=== PATIENT | male | born 1970 | race African-American/Black ===

== ENCOUNTER 2023-10-06 21:21 | Emergency (ER) | payer OTHER ==
[2023-10-06 21:36] VITALS: PULSE 88; TEMP 97.9; BMI 28.0
[2023-10-06] MEDS ORDERED: HALOPERIDOL LACTATE 5 MG/ML ONE (22:19)
[2023-10-06 22:20] LABS: VENOUS BASE EXCESS -2.6 mmol/L (-2-2); VENOUS O2 SATURATION 88.5 % (70-80); VENOUS PCO2 36.1 mmHg (38-52); VENOUS PH 7.395 (7.310-7.410)
[2023-10-06 22:24] LABS: BASO % 0.7 % (0-2.0); EOS % 0.3 % (0-4.5); HEMATOCRIT 41.1 % (35.4-49); LYMPH % 24.7 % (8-40); MCH 26.3 pg (25.7-33.7); MCHC 34.1 g/dl (32.0-35.9); MEAN CELL VOLUME 76.9 fl (80-96); MEAN PLT VOLUME 8.7 fl (7.5-11.1); MONO % 8.9 % (3.8-10.2); NEUT % 65.4 % (42.8-82.8); PLATELET COUNT 235 10^3/uL (134-434); RBC 5.35 M/mm3 (4.00-5.60); RDW 14.9 % (11.9-15.9); WHITE BLOOD COUNT 6.4 K/mm3 (4.0-10.0)
[2023-10-06] MEDS: HALOPERIDOL LACTATE 5 MG/ML IM ONE (22:25)
[2023-10-06 22:37] LABS: POTASSIUM 3.6 mmol/L (3.5-5.1)
[2023-10-06 22:39] LABS: ALBUMIN 4.2 g/dl (3.4-5.0); CALCIUM 9.7 mg/dL (8.5-10.1)
[2023-10-06 22:40] LABS: BLOOD UREA NITROGEN 16.3 mg/dL (7-18); MAGNESIUM 2.3 mg/dL (1.8-2.4)
[2023-10-06 22:42] LABS: CREATININE 1.1 mg/dL (0.55-1.3); PHOSPHOROUS 3.9 mg/dL (2.5-4.9)
[2023-10-06 22:44] LABS: BILIRUBIN,TOTAL 0.9 mg/dL (0.2-1); TOT PROT 7.8 g/dl (6.4-8.2)
[2023-10-06] MEDS: SODIUM CHLORIDE 1,000 ML IV STA (22:46)
[2023-10-07 00:21] VITALS: BP 128/88; RESP 16
== END 2023-10-07 00:21 | disposition home or self-care (01) ==
LOC: JER 21:21
PROC: 3E0337Z Introduction of Electrolytic and Water Balance Substance into Peripheral Vein, Percutaneous Approach (ICD-10-PCS; principal; 2023-10-06)
DX: R63.0 Anorexia (principal); R11.0 Nausea; R19.7 Diarrhea, unspecified
CPT/HCPCS: 36415; 80053; 82803; 83690; 83735; 84100; 85025; 93005; 93010; 99284-25